=== PATIENT | male | born 1995 | race Caucasian/White ===

== ENCOUNTER 2023-07-27 06:21 | Emergency (ER) | payer OTHER, SELFPAY ==
[2023-07-27] VITALS (17 sets, daily range): BP systolic 116–141; BP diastolic 69–92; PULSE 100–125; RESP 20–35; TEMP 36.6; O2SAT 98–100
--- NOTE | 2023-07-27 07:27 | ED.GENADULT ---
HPI - General Adult General Chief complaint: Overdose Stated complaint: overdose Time Seen by Provider: 07/27/23 06:55 History of Present Illness HPI narrative: 27-year-old old male with a history of opiate abuse presented to the emergency department for evaluation after having unresponsive episode after crushing and snorting a pill. patient states that he recently returned to the [facility] for long-term substance abuse treatment. Patient states this is his 1st relapse. patient is denying any complaints at this time. Patient denies any homicidal or suicidal ideation. Related Data Allergies Allergy/AdvReac Type Severity Reaction Status Date / Time No Known Allergies Allergy Verified 07/27/23 07:35 Review of Systems Review of Systems: All systems reviewed & are unremarkable except as noted in HPI and below Exam Narrative: APPEARANCE: Well appearing, no pain, no distress, well-nourished. HEAD: normocephalic, atraumatic. EYES: PERRLA/EOMI, conjunctivae clear. NOSE: Normal no drainage EARS:TMS clear with good light reflex. THROAT: Pharynx clear, no exudate. NECK: Supple. No adenopathy, no masses. RESPIRATORY: Airway patent, respirations nonlabored. Clear to auscultation bilaterally, no rales, rhonchi, wheezing. CARDIOVASCULAR: Regular rate and rhythm without murmurs rubs or gallops. ABDOMINAL: Soft, nontender, nondistended, normal bowel sounds MUSCULOSKELETAL: Moves all extremities. Strength/ROM intact, No edema, No calf tenderness. NEURO: Alert. Cranial nerves II through XII intact. Grossly intact SKIN: Warm, dry. Normal Color Course Course Emergency Course: 27-year-old male presents to the emergency department for evaluation after an opiate overdose. patient continues to be alert oriented denies complaints at this time. the patient states is not attempt at self-harm. Patient reports he does feel improved. Patient was advised not to take medications that are not his own. Patient and family are comfortable with plan for discharge and close follow-up. Patient was afebrile with a minor leukocytosis of 13.5 with a normal hemoglobin. No significant abnormalities on the CMP other than some elevated AST and ALT. Vital Signs Vital signs: Vital Signs Temperature 97.9 F 07/27/23 06:22 Pulse Rate 115 H 07/27/23 06:22 Respiratory Rate 21 H 07/27/23 06:22 Blood Pressure 141/92 H 07/27/23 06:22 Pulse Oximetry 98 07/27/23 06:22 Oxygen Delivery Room Air 07/27/23 06:22 Temperature 97.9 F 07/27/23 06:22 Pulse Rate 100 07/27/23 09:15 Respiratory Rate 20 07/27/23 09:15 Blood Pressure 116/69 07/27/23 07:19 Pulse Oximetry 99 07/27/23 09:15 Oxygen Delivery Room Air 07/27/23 06:22 Medical Decision Making Vital Signs Vital Signs: Vital Signs Temperature 97.9 F 07/27/23 06:22 Pulse Rate 115 H 07/27/23 06:22 Respiratory Rate 21 H 07/27/23 06:22 Blood Pressure 141/92 H 07/27/23 06:22 Pulse Oximetry 98 07/27/23 06:22 Oxygen Delivery Room Air 07/27/23 06:22 Temperature 97.9 F 07/27/23 06:22 Pulse Rate 100 07/27/23 09:15 Respiratory Rate 20 07/27/23 09:15 Blood Pressure 116/69 07/27/23 07:19 Pulse Oximetry 99 07/27/23 09:15 Oxygen Delivery Room Air 07/27/23 06:22 Lab Data Lab results reviewed: Yes I reviewed the patient's lab results. 07/27/23 08:08 07/27/23 08:08 Labs: Lab Results 07/27/23 Range/Units 08:08 WBC 13.5 H (4.5-10.0) K/mm3 RBC 6.01 (4.6-6.20) M/mm3 Hgb 16.8 (14.0-18.0) g/dL Hct 51.0 (42.0-52.0) % MCV 84.9 (80-100) fl MCH 28.0 (26-34) pg MCHC 32.9 (32-36) g/dl RDW 13.8 (11.5-14.5) % Plt Count 266 (150-375) k/mm3 MPV 9.3 (7.4-10.4) fl Immature Gran % (Auto) 0.5 (0-0.5) % Neut % (Auto) 80.4 H (45.5-73.1) % Lymph % (Auto) 10.6 L (18.3-44.2) % Door % (Auto) 7.8 (2.6-8.5) % Eos % (Auto) 0.4 (0-4.4) % Baso % (Auto) 0.3 (0.2-
[2023-07-27] MEDS: SODIUM CHLORIDE 0.9% IV 1,000 ML 999 ML IV CONT (08:12)
[2023-07-27 08:15] LABS: Basophils Percent Auto 0.3 % (0.2-1.2); Eosinophils Absolute Auto 0.1 K/mm3 (0-0.3); Eosinophils Percent Auto 0.4 % (0-4.4); Hemoglobin 16.8 g/dL (14.0-18.0); Immature Granulocyte Absolute 0.07 K/mm3 (0.00-0.031); Immature Granulocyte Percent A 0.5 % (0-0.5); Lymphocytes Absolute Auto 1.43 K/mm3 (0.9-3.2); Lymphocytes Percent Auto 10.6 % (18.3-44.2); Mean Corpuscular HGB Conc 32.9 g/dl (32-36); Mean Corpuscular Volume 84.9 fl (80-100); Mean Platelet Volume 9.3 fl (7.4-10.4); Monocytes Absolute Auto 1.1 K/mm3 (0.1-0.6); Monocytes Percent Auto 7.8 % (2.6-8.5); Neutrophils Absolute Auto 10.8 K/mm3 (1.3-6.7); Neutrophils Percent Auto 80.4 % (45.5-73.1); Platelet Count Result 266 k/mm3 (150-375); Red Blood Count 6.01 M/mm3 (4.6-6.20); Red Cell Distribution Width 13.8 % (11.5-14.5); White Blood Count 13.5 K/mm3 (4.5-10.0)
[2023-07-27 08:24] LABS: Alanine Aminotransferase 219 U/L (6-50); Albumin Level 4.5 g/dL (3.5-5.1); Alkaline Phosphatase 63 U/L (38-126); Anion Gap 9 mmol/L (8-16); Aspartate Amino Transferase 113 U/L (17-59); Bilirubin,Total 0.8 mg/dL (0.2-1.3); Blood Urea Nitrogen 14 mg/dL (9-20); Calcium 9.2 mg/dL (8.4-10.2); Carbon Dioxide 28 mmol/L (22-30); Chloride 99 mmol/L (98-107); Estimated CRCL calculation 149 ml/min; Estimated Glomerular Filt Rate > 60; Glucose 125 mg/dL (65-110); Potassium 3.6 mmol/L (3.4-5.0); Sodium 136 mmol/L (137-145)
--- NOTE | 2023-07-27 14:28 | ECG_ITS ---
Measurements Intervals [place] Rate: 115 P: 46 WV: 172 QRS: 112 QRSD: 114 T: -12 QT: 328 QTc: 454 Interpretive Statements SINUS TACHYCARDIA LEFT POSTERIOR FASCICULAR BLOCK BORDERLINE ST-T WAVE ABNORMALITY- INFERIOR LEADS BASELINE ARTIFACT- I, II, III, AVR, AVL,A VF, V1 ABNORMAL ECG NO PREVIOUS ECG AVAILABLE FOR COMPARISON Electronically Signed On 07-27-2023 14:40:23 FAILURE ANALYSIS TECHNICIAN by Enoc De La Garza D.O.
== END 2023-07-27 09:22 | disposition home or self-care (01) ==
PROVIDERS: Emergency Provider Emergency Medicine
DX: T40.2X1A Poisoning by other opioids, accidental (unintentional), initial encounter (principal); R00.0 Tachycardia, unspecified; I44.5 Left posterior fascicular block; R94.31 Abnormal electrocardiogram [ECG] [EKG]
CPT/HCPCS: 36415; 80053; 85025; 93005; 96360; 99283; J7030

== ENCOUNTER 2024-01-23 10:59 | Emergency (ER) | payer OTHER, SELFPAY ==
[2024-01-23 11:13] VITALS: BP 126/74; PULSE 104; RESP 16; TEMP 37.3; O2SAT 100
--- NOTE | 2024-01-23 11:51 | ED.EYEPROB ---
HPI - Eye Problem General Chief complaint: Eye Problems Stated complaint: Vision Blurry Time Seen by Provider: 01/23/24 11:48 Source: patient, RN notes reviewed and old records reviewed Mode of arrival: ambulatory Limitations: no limitations History of Present Illness HPI Narrative: 28-year-old male presents to the [facility] with complaints of 3 or 4 day history of having blurry vision in the morning but only when looking at his cellphone. Denies headache. Denies any blurry vision currently. Denies any upper respiratory symptoms Onset (ago): day(s) (3-4) Related Data Home Medications Medication Instructions Recorded Confirmed No Home Medications 01/23/24 01/23/24 Allergies Allergy/AdvReac Type Severity Reaction Status Date / Time No Known Allergies Allergy Verified 01/23/24 11:07 Review of Systems Review of Systems: All systems reviewed & are unremarkable except as noted in HPI and below Constitutional: Constitutional: Reports no additional constitutional complaints Eyes: Eyes: Reports as per HPI ENT: Reports system reviewed and no additional complaints, except as documented Cardiovascular: Cardiovascular: Reports no additional cardiovascular complaints, Denies chest pain and Denies dyspnea Respiratory: Respiratory: Reports no additional respiratory complaints, Denies chest congestion, Denies cough and Denies dyspnea Gastrointestinal: Gastrointestinal: Reports no additional gastrointestinal complaints, Denies abdominal pain, Denies nausea and Denies vomiting Musculoskeletal: Musculoskeletal: Reports no additional musculoskeletal complaints Integumentary/Breasts: Skin/Breast: Reports system reviewed and no additional complaints, except as docu Neurologic: Reports system reviewed and no additional complaints, except as documented Psychiatric: Psychiatric: Reports no additional psychiatric complaints Allergic/Immunologic: Allergic/Immunologic: Reports no additional allergic/immunologic complaints PMFSH Comments At the time of my signature, I reviewed and agree with the nursing past medical, surgical, social, and family history. There is no relevant family history pertinent to the patient complaint. Exam Const: General: cooperative, healthy appearing, comfortable, no acute distress, well developed, alert and well nourished Nutritional Appearance: well nourished Orientation/consciousness: patient oriented x3 Limitations: no limitations HENMT: Head: normal to inspection Ears: hearing grossly normal bilaterally and external ears normal Face/Nose/Sinus: Normal external nose present, Normal nares present, Normal nasal mucous membranes and turbinates present, normal facial exam and face symmetric Face and sinus: normal facial exam and face symmetric Eyes: General: appearance normal, both eyes and all related structures Visual Lima: normal visual lima by confrontation Alignment and Position: alignment normal Periorbital: periorbital findings normal Eyelids: eyelids normal Conjunctivae: conjunctivae normal Sclera: sclerae normal Pupils: Equal, round and reactive pupils present EOM: EOMs intact bilaterally Neck: Neck: normal visual inspection, full ROM, no lymphadenopathy and no meningeal signs Chest: Chest palpation & inspection: normal inspection of the chest Resp: Effort & Inspection: normal respiratory effort and able to speak in complete sentences Auscultation: clear to auscultation bilaterally, no crackles, no rales, no rhonchi and no wheezes Cardio: Rate: regular rate Rhythm: regular rhythm Skin: General skin exam: normal color and no rashes or lesions noted Lesions: no lesions Rashes: no rashes Trauma: no lacerations or abrasions Wounds: no wounds Neuro: General: patient oriented x3, gait normal, tone normal, moves all extremities and no meningeal signs Cranial nerves: Yes Equal, round and reactive pupils present Cognition (Neuro): normal cognition Speech: normal speech Gait exam (
== END 2024-01-23 12:07 | disposition home or self-care (01) ==
PROVIDERS: Emergency Provider Nurse Practitioner
DX: H53.8 Other visual disturbances (principal)
CPT/HCPCS: 99212; G0463

== ENCOUNTER 2024-02-20 19:07 | Emergency (ER) | payer OTHER, SELFPAY ==
[2024-02-20 19:22] VITALS: BP 121/96; PULSE 96; RESP 16; TEMP 36.6; O2SAT 100
--- NOTE | 2024-02-20 19:27 | ED.MALEGU ---
HPI - Male Genitourinary General Chief complaint: Urogenital-Male Stated complaint: Diarrhea,Vomiting/Work Note Time Seen by Provider: 02/20/24 19:28 Source: patient Mode of arrival: ambulatory Limitations: no limitations History of Present Illness HPI Narrative: 28-year-old male presents with complaint of nausea vomiting diarrhea for 2 days that has now resolved. Needs work note. Patient also reports urinary incontinence while sleeping for the past 2 months. Does not happen every night. Patient asking for referral to Urology. No urinary symptoms at this Time. Denies pain. patient reports similar urinary incontinence as a child During sleep. All systems reviewed and negative except as noted above. Related Data Home Medications Medication Instructions Recorded Confirmed No Home Medications 01/23/24 02/20/24 Allergies Allergy/AdvReac Type Severity Reaction Status Date / Time No Known Allergies Allergy Verified 01/23/24 11:07 Review of Systems Review of Systems: CONSTITUTIONAL: Denies fever, chills, or sweats. EYES: Denies visual changes, redness, or discharge. ENT: Denies rhinorrhea, congestion, sore throat, or otalgia. CARDIOVASCULAR: Denies chest pain, palpitations, or edema. RESPIRATORY: Denies cough or dyspnea. GASTROINTESTINAL: Denies abdominal pain, nausea, vomiting, or diarrhea. GENITOURINARY: Denies dysuria or hematuria. Reports urinary incontinence at night. SKIN: Denies rash or itching. MUSCULOSKELETAL: Denies back pain, joint pain, or myalgia. NEUROLOGIC: Denies headache, numbness, or weakness. PSYCHIATRIC: Denies anxiety or depression. All other systems reviewed are negative, except as documented in HPI. PMFSH Comments At time of signature, agree with nursing past medical, surgical, social and family history. There is no relevant family history pertinent to the presenting complaint. Exam Narrative: GENERAL: This is a well-nourished, well-developed patient, in no apparent distress. HEAD: normocephalic, atraumatic. EYES: PERRL. Sclera clear/white. Vision is grossly intact. EARS: External ears normal NOSE: External nose normal NECK: Neck supple, non-tender without lymphadenopathy, masses or thyromegaly. CARDIOVASCULAR: Regular rate and rhythm without murmurs, gallops, or rubs. RESPIRATORY: Clear to auscultation. Breath sounds equal bilaterally. No wheezes, rales, or rhonchi. GASTROINTESTINAL: Abdomen soft, non-tender, nondistended. Bowel sounds are active. No hepato-splenomegaly, or palpable masses. No guarding. SKIN: warm, Dry, intact with no suspicious lesions or rash, good texture and turgor. NEURO: awake, alert, and oriented to person, place and time. There were no obvious focal neurologic abnormalities. EXTREMITIES: No joint tenderness, effusion, or edema noted. Course Course Level of Care: Express Care Visit Vital Signs Vital signs: Vital Signs Temperature 36.6 C 02/20/24 19:22 Pulse Rate 96 02/20/24 19:22 Respiratory Rate 16 02/20/24 19:22 Blood Pressure 121/96 H 02/20/24 19:22 Pulse Oximetry 100 02/20/24 19:22 Oxygen Delivery Room Air 02/20/24 19:22 Temperature 36.6 C 02/20/24 19:22 Pulse Rate 96 02/20/24 19:22 Respiratory Rate 16 02/20/24 19:22 Blood Pressure 121/96 H 02/20/24 19:22 Pulse Oximetry 100 02/20/24 19:22 Oxygen Delivery Room Air 02/20/24 19:22 Reviewed MDM - Male Genitourinary MDM Narrative Medical decision making narrative: urinalysis normal. Referred patient to urologist for further evaluation. He is not having any pain or urinary symptoms at this time. Symptoms have been for 2 months, intermittently. No neuro deficits. Patient is aware of diagnosis, understands and agrees to treatment plan. Anticipatory guidance given. Patient agrees to follow-up as directed and is aware of reasons to seek care at the emergency department. Portions of this record may have been created with voice recognitio
== END 2024-02-20 19:58 | disposition home or self-care (01) ==
PROVIDERS: Emergency Provider Nurse Practitioner Family
DX: R11.2 Nausea with vomiting, unspecified (principal); R19.7 Diarrhea, unspecified; N39.44 Nocturnal enuresis
CPT/HCPCS: 81003; 99212; G0463

== ENCOUNTER 2024-03-13 21:39 | Emergency (ER) | payer OTHER, SELFPAY ==
[2024-03-13 22:02] VITALS: BP 131/74; PULSE 84; RESP 20; TEMP 36.7; O2SAT 99
--- NOTE | 2024-03-14 00:03 | PC.NURSE ---
Patient called for room assignment, no answer and not seen in waiting room.
--- NOTE | 2024-03-14 00:20 | PC.NURSE ---
Patient called again for room assignment, not seen in waiting room, no answer. Patient marked as left without being seen, triaged.
== END 2024-03-14 00:22 | disposition left against medical advice (07) ==
DX: R22.43 Localized swelling, mass and lump, lower limb, bilateral (principal)
CPT/HCPCS: 99199

== ENCOUNTER 2024-03-15 19:11 | Emergency (ER) | payer OTHER, SELFPAY ==
[2024-03-15 19:18] VITALS: BP 130/79; PULSE 101; RESP 16; TEMP 37.1; O2SAT 99
--- NOTE | 2024-03-15 19:19 | ED.GENADULT ---
HPI - General Adult General Chief complaint: Extremity Problem,Nontraumatic Stated complaint: Swollen Feet Source: patient, RN notes reviewed and old records reviewed Mode of arrival: ambulatory Limitations: no limitations History of Present Illness HPI narrative: Patient presents with complaints of swelling to the bilateral feet. He reports that a couple of days ago the swelling was much worse. 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 He reports that over the past couple of days he has been more mindful of what he eats and drinks, has been eating healthier foods and drinking more water instead of so much soda, states that he believes his foot swelling has gone down dramatically. He also reports that elevating his feet has helped. He states that typically his feet are more swollen by the end of the day, do feel better when he elevates them. He denies any injury or trauma. He denies any chest pain or shortness of breath. He voices no other concerns or complaints at this time. Related Data Home Medications Medication Instructions Recorded Confirmed No Home Medications 01/23/24 03/15/24 Allergies Allergy/AdvReac Type Severity Reaction Status Date / Time No Known Allergies Allergy Verified 03/15/24 19:14 Review of Systems Review of Systems: All systems reviewed & are unremarkable except as noted in HPI and below Constitutional: Constitutional: Reports no additional constitutional complaints ENT: Reports system reviewed and no additional complaints, except as documented Cardiovascular: Cardiovascular: Reports no additional cardiovascular complaints, Denies dyspnea and Denies paroxysmal nocturnal dyspnea Respiratory: Respiratory: Reports no additional respiratory complaints Gastrointestinal: Gastrointestinal: Reports no additional gastrointestinal complaints Musculoskeletal: Musculoskeletal: Reports other (Bilateral foot swelling) PMFSH Comments At the time of my signature, I reviewed and agree with the nursing past medical, surgical, social, and family history. There is no relevant family history pertinent to the patient complaint. Exam Const: General: cooperative, no acute distress, alert and awake Orientation/consciousness: oriented to person, oriented to place and oriented to time HENMT: Head: normal to inspection Resp: Effort & Inspection: normal respiratory effort and able to speak in complete sentences Auscultation: clear to auscultation bilaterally, no crackles, no rales, no rhonchi and no wheezes Cardio: Palpation: normal PMI Rate: regular rate Rhythm: regular rhythm Heart sounds: S1 normal heart sound present and S2 normal heart sound present Neuro: General: oriented to person, oriented to place and oriented to time Cranial nerves: Yes CN's II-XII intact bilaterally Extrem: Other: Trace edema bilateral feet Psych: Appearance: grossly normal Thought process: Normal thought process present Insight: Good insight present (Psych) Judgement: Good judgement present (Psych) Course Course Level of Care: Express Care Visit Vital Signs Vital signs: Vital Signs Temperature 98.7 F 03/15/24 19:18 Pulse Rate 101 H 03/15/24 19:18 Respiratory Rate 16 03/15/24 19:18 Blood Pressure 130/79 03/15/24 19:18 Pulse Oximetry 99 03/15/24 19:18 Oxygen Delivery Room Air 03/15/24 19:18 Temperature 98.7 F 03/15/24 19:18 Pulse Rate 101 H 03/15/24 19:18 Respiratory Rate 16 03/15/24 19:18 Blood Pressure 130/79 03/15/24 19:18 Pulse Oximetry 99 03/15/24 19:18 Oxygen Delivery Room Air 03/15/24 19:18 Reviewed Medical Decision Making MDM Narrative Medical decision making narrative: Patient with trace bilateral foot edema. He states this is much improved over the past few days. Reports that dietary changes and elevating his feet have helped greatly. He was encouraged to continue with lifestyle changes.
== END 2024-03-15 19:34 | disposition home or self-care (01) ==
PROVIDERS: Emergency Provider Nurse Practitioner Family
DX: R60.0 Localized edema (principal)
CPT/HCPCS: 99211; G0463

== ENCOUNTER 2024-03-18 19:38 | Emergency (ER) | payer OTHER, SELFPAY ==
[2024-03-18 19:49] VITALS: BP 130/92; PULSE 109; RESP 16; TEMP 36.9; O2SAT 99
--- NOTE | 2024-03-18 20:15 | ED.GENADULT ---
HPI - General Adult General Chief complaint: Extremity Problem,Nontraumatic Stated complaint: Swollen Feet Source: patient Mode of arrival: ambulatory Limitations: no limitations History of Present Illness HPI narrative: Patient presents requesting a note to excuse him from work yesterday and tomorrow. He indicates he has had swelling in his feet and was evaluated here recently for that. Since that time he has decreased sodium intake and has been elevating his legs. He feels like he just needs some time off of his feet to ensure that his swelling does not have a recurrence. He denies any new injury. Related Data Home Medications Medication Instructions Recorded Confirmed No Home Medications 01/23/24 03/18/24 Allergies Allergy/AdvReac Type Severity Reaction Status Date / Time No Known Allergies Allergy Verified 03/18/24 19:40 Review of Systems Review of Systems: CONSTITUTIONAL: Denies fever, chills, or sweats. EYES: Denies visual changes, redness, or discharge. ENT: Denies rhinorrhea, congestion, sore throat, or otalgia. CARDIOVASCULAR: Denies chest pain, palpitations, or edema. RESPIRATORY: Denies cough or dyspnea. GASTROINTESTINAL: Denies abdominal pain, nausea, vomiting, or diarrhea. GENITOURINARY: Denies dysuria or hematuria. SKIN: Denies rash or itching. MUSCULOSKELETAL: Reports swelling and pain in the feet, improved NEUROLOGIC: Denies headache, numbness, dizziness, or weakness. PSYCHIATRIC: Denies anxiety or depression. [facility] Past Medical History Medical History No pertinent past medical history Surgical History Surgical History History of tonsillectomy Family History Family History Mother Family history non-contributory Social History Social History Smoking status: Never smoker Substance use: never Additional living arrangements comments: lives with girlfriend Gender identity (if verbalized by the patient): Male Sexual Orientation (if Verbalized by the Patient): Straight or Heterosexual Spiritual care concerns: No Exam Narrative: GENERAL: Well-appearing, well-nourished, and in no acute distress. HEAD: Normocephalic, atraumatic. EYES: PERRLA and EOMI. ENT: Nares clear, no rhinorrhea or epistaxis. Mucous membranes moist. Oropharynx without tonsillar hypertrophy exudate or other lesions. Bilateral TMs pearly bender nonbulging NECK: Supple. No adenopathy or masses. No carotid bruits or JVD CHEST: Clear to auscultation. No respiratory distress. No wheezes rales or rhonchi HEART: Regular rate and rhythm. No murmur heard. Normal peripheral pulses. ABDOMEN: Soft, nontender, nondistended, normal active bowel sounds. EXTREMITIES: Normal range of motion. No edema. SKIN: Warm, dry, no rash. NEURO: No focal deficits. Alert and oriented x3. PSYCH: Normal mood and affect. Course Course Emergency Course: this is a 28-year-old male who presented requesting a work note to excuse him from work yesterday and tomorrow. This is reasonable request. Advised on elevating legs and limiting salt intake. Follow-up with primary provider. Go to the ER for worsening symptoms. Patient in agreement with plan of care. Level of Care: Express Care Visit Vital Signs Vital signs: Vital Signs Temperature 36.9 C 03/18/24 19:49 Pulse Rate 109 H 03/18/24 19:49 Respiratory Rate 16 03/18/24 19:49 Blood Pressure 130/92 H 03/18/24 19:49 Pulse Oximetry 99 03/18/24 19:49 Oxygen Delivery Room Air 03/18/24 19:49 Temperature 36.9 C 03/18/24 19:49 Pulse Rate 109 H 03/18/24 19:49 Respiratory Rate 16 03/18/24 19:49 Blood Pressure 130/92 H 03/18/24 19:49 Pulse Oximetry 99 03/18/24 19:49 Oxygen Delivery Room Air 03/18/24
== END 2024-03-18 20:15 | disposition home or self-care (01) ==
PROVIDERS: Emergency Provider Nurse Practitioner
DX: Z02.79 Encounter for issue of other medical certificate (principal)
CPT/HCPCS: 99211; G0463

== ENCOUNTER 2024-04-16 18:06 | Emergency (ER) | payer OTHER, SELFPAY ==
[2024-04-16 18:22] VITALS: BP 119/70; PULSE 89; RESP 19; TEMP 36.8; O2SAT 98
--- NOTE | 2024-04-16 18:30 | ED.GENADULT ---
HPI - General Adult General Chief complaint: Unspecified Stated complaint: work note Time Seen by Provider: 04/16/24 18:26 Source: patient and RN notes reviewed Mode of arrival: ambulatory Limitations: no limitations History of Present Illness HPI narrative: Patient presents today requesting a note to return to work. 2 days ago, he was sent home from work after vomiting and with an upset stomach. Symptoms are completely resolved. Patient is requesting a return to work note. Related Data Home Medications Medication Instructions Recorded Confirmed No Home Medications 01/23/24 04/16/24 Allergies Allergy/AdvReac Type Severity Reaction Status Date / Time No Known Allergies Allergy Verified 04/16/24 18:08 Review of Systems Review of Systems: CONSTITUTIONAL: Denies body aches, fever, chills, or sweats. EYES: Denies visual changes, redness, or discharge. ENT: Denies rhinorrhea, congestion, sore throat, or otalgia. CARDIOVASCULAR: Denies chest pain, palpitations, or edema. RESPIRATORY: Denies cough or dyspnea. GASTROINTESTINAL: Denies abdominal pain, nausea, vomiting, or diarrhea. GENITOURINARY: Denies dysuria or hematuria. SKIN: Denies rash, itching, or wounds. MUSCULOSKELETAL: Denies back pain, joint pain, or myalgia. NEUROLOGIC: Denies headache, numbness, tingling, or weakness. PSYCH: Denies depression or anxiety. [facility] Past Medical History Medical History No pertinent past medical history Surgical History Surgical History History of tonsillectomy Family History Family History Mother Family history non-contributory Social History Social History Smoking status: Never smoker Substance use: never Additional living arrangements comments: lives with girlfriend Gender identity (if verbalized by the patient): Male Sexual Orientation (if Verbalized by the Patient): Straight or Heterosexual Spiritual care concerns: No Comments At time of signature, I have reviewed and agree with nursing past medical, surgical, social and family history unless otherwise noted. Please see nursing chart for further information. There is no relevant family history pertinent to the presenting complaint Exam Narrative: GENERAL: Well-appearing, well-nourished, and in no acute distress. HEAD: Normocephalic, atraumatic. EYES: EOMI. No redness or drainage. Conjunctivae normal. ENT: Mucous membranes pink and moist. NECK: Normal AROM. CHEST: No respiratory distress. Clear to auscultation. HEART: Regular rate and rhythm. No murmur appreciated. ABDOMEN: Soft, nontender, nondistended, normal active bowel sounds. EXTREMITIES: Normal range of motion. No edema. SKIN: Warm, dry, no rash. Capillary refill normal. Normal skin turgor. Sunburn to neck, upper chest NEURO: No focal deficits. Alert and oriented x3. Gait steady. PSYCH: Normal affect. No signs of depression or anxiety. Course Course Level of Care: Express Care Visit Vital Signs Vital signs: Vital Signs Temperature 98.3 F 04/16/24 18:22 Pulse Rate 89 04/16/24 18:22 Respiratory Rate 19 04/16/24 18:22 Blood Pressure 119/70 04/16/24 18:22 Pulse Oximetry 98 04/16/24 18:22 Oxygen Delivery Room Air 04/16/24 18:22 Temperature 98.3 F 04/16/24 18:22 Pulse Rate 89 04/16/24 18:22 Respiratory Rate 19 04/16/24 18:22 Blood Pressure 119/70 04/16/24 18:22 Pulse Oximetry 98 04/16/24 18:22 Oxygen Delivery Room Air 04/16/24 18:22 Reviewed Medical Decision Making MDM Narrative Medical decision making narrative: Patient's symptoms have completely resolved. Work note provided. Differential Diagnosis Differential Diagnosis: Gastroenteritis, food poisoning, viral syndrome Vit
== END 2024-04-16 18:40 | disposition home or self-care (01) ==
PROVIDERS: Emergency Provider Nurse Practitioner
DX: Z02.79 Encounter for issue of other medical certificate (principal); R11.10 Vomiting, unspecified
CPT/HCPCS: 99211; G0463

== ENCOUNTER 2024-08-11 17:18 | Emergency (ER) | payer OTHER, SELFPAY ==
[2024-08-11 17:30] VITALS: BP 118/58; PULSE 82; RESP 18; TEMP 37; O2SAT 99
--- NOTE | 2024-08-11 17:32 | ED_ITS ---
HPI - Extremity Problem General Chief complaint: Extremity Problem,Nontraumatic Stated complaint: Right Leg/Foot Numbness Time Seen by Provider: 08/11/24 17:32 Source: patient, RN notes reviewed and old records reviewed Mode of arrival: ambulatory Limitations: no limitations History of Present Illness HPI Narrative: Patient presents with complaints of pain that shoots down the right buttock, hip, into leg and finally down to the foot. He reports symptoms began this morning. He reports that standing for long periods of time, such as what he does at work, aggravates his symptoms. He has not been taking any medication for his symptoms. He describes pain as ?tingly?. He is observed ambulating with a steady gait. He denies any injury or trauma. Related Data Allergies Allergy/AdvReac Type Severity Reaction Status Date / Time No Known Allergies Allergy Verified 08/11/24 17:20 Review of Systems Review of Systems: All systems reviewed & are unremarkable except as noted in HPI and below Constitutional: Constitutional: Reports no additional constitutional complaints ENT: Reports system reviewed and no additional complaints, except as documented Cardiovascular: Cardiovascular: Reports no additional cardiovascular complaints Respiratory: Respiratory: Reports no additional respiratory complaints Gastrointestinal: Gastrointestinal: Reports no additional gastrointestinal complaints Musculoskeletal: Musculoskeletal: Reports no additional musculoskeletal complaints and Reports as per HPI [facility] Past Medical History Medical History No pertinent past medical history Surgical History Surgical History History of tonsillectomy Family History Family History Mother Family history non-contributory Social History Social History Smoking status: Never smoker Substance use: never Additional living arrangements comments: lives with girlfriend Gender identity (if verbalized by the patient): Male Sexual Orientation (if Verbalized by the Patient): Straight or Heterosexual Spiritual care concerns: No Comments At the time of my signature, I reviewed and agree with the nursing past medical, surgical, social, and family history. There is no relevant family history pertinent to the patient complaint. Exam Const: General: cooperative, no acute distress, alert and awake Orientation/consciousness: oriented to person, oriented to place and oriented to time HENMT: Head: normal to inspection Resp: Effort & Inspection: normal respiratory effort and able to speak in complete sentences Auscultation: clear to auscultation bilaterally, no crackles, no rales, no rhonchi and no wheezes Cardio: Palpation: normal PMI Rate: regular rate Rhythm: regular rhythm Heart sounds: S1 normal heart sound present and S2 normal heart sound present Neuro: General: oriented to person, oriented to place and oriented to time Cranial nerves: Yes CN's II-XII intact bilaterally Extrem: General: normal to inspection and full ROM Right lower extremity: normal to inspection Psych: Appearance: grossly normal Thought process: Normal thought process present Insight: Good insight present (Psych) Judgement: Good judgement present (Psych) Course Course Level of Care: Express Care Visit Vital Signs Vital signs: Reviewed MDM - Extremity (Nontraumatic) MDM Narrative Medical decision making narrative: History and exam consistent with sciatica. Treat as such. Patient not taking any medications for his symptoms, start prescription strength naproxen. He is advised to follow with primary care provider. Emergency department for new or worse symptoms. Discharge instructions reviewed with patient, as well as provided in writing per nursing staff. The instructions also include specific and strict return/GO TO THE ER as well as f/u information. All questions have been answered, and the patient deny any further questions with discharge and discharge plan. Some parts of this dictation were generated by voice recognition software and may contain typographical and/or grammatical inaccuracies. Differential Diagnosis Differential diagnosis: Likely gout and other (Musculoskeletal pain) Medical Records Attestation: I reviewed the patient's medical records. Discharge Plan Discharge Clinical Impression: Sciatica Qualifiers: Laterality: right Qualified Code(s): M54.31 - Sciatica, right side Patient Disposition: Home, Self-Care Condition: Stable Instructions: Antibiotic Form, Sciatica (ED) Additional Instructions: Take medications as prescribed. Follow with primary care provider. Emergency department for new or worse symptoms Patient Language: Yakut Prescriptions: New naproxen sodium 550 mg tablet 550 mg PO Q12H PRN (Reason: pain) Qty: 30 0RF Follow-up/Referrals: PHYSICIAN,[facility] MACHINE [Primary Care Provider] - Stand Alone Forms: Work/School Release IP Time of Disposition: 17:53
== END 2024-08-11 18:00 | disposition home or self-care (01) ==
PROVIDERS: Emergency Provider Nurse Practitioner Family
DX: M54.31 Sciatica, right side (principal)
CPT/HCPCS: 99213; G0463